=== PATIENT | male | born 1980 | race Two or more races ===

== ENCOUNTER 2018-07-04 22:10 | Emergency (ER) | payer SELFPAY ==
[2018-07-04 22:33] VITALS: BP 116/74
[2018-07-04 23:02] LABS: HEMATOCRIT 45.3 % (37.9-51.0); HEMOGLOBIN 15.8 g/dL (13.5-17.0); MEAN CORPUSCULAR HEMOGLOBIN 30.1 pg (27.0-33.4); MEAN CORPUSCULAR HGB CONC 34.9 g/dL (32.0-36.0); MEAN CORPUSCULAR VOLUME 87 fl (80-97); PLATELET COUNT 327 10^3/uL (150-450); RED BLOOD COUNT 5.24 10^6/uL (4.35-5.55); RED CELL DISTRIBUTION WIDTH 14.3 % (11.5-14.0); WHITE BLOOD COUNT 8.4 10^3/uL (4.0-10.5)
[2018-07-04 23:12] LABS: ANION GAP 12 (5-19); BLOOD UREA NITROGEN 26 mg/dL (7-20); CALCIUM 8.9 mg/dL (8.4-10.2); CARBON DIOXIDE 21 mmol/L (22-30); CHLORIDE 107 mmol/L (98-107); GLUCOSE 131 mg/dL (75-110); POTASSIUM 4.2 mmol/L (3.6-5.0); SODIUM 139.6 mmol/L (137-145)
--- NOTE | 2018-07-04 23:20 | RADIOLOGY REPORT (SQ) ---
Portable chest HISTORY: Chest pain. FINDINGS: Heart is mildly enlarged. No consolidation or pleural effusion. No pulmonary edema or pneumothorax. IMPRESSION: No acute disease.
[2018-07-04] MEDS ORDERED: LIDOCAINE 5% (700 MG) TRANSDERMAL ADH..PATCH TP ONE (23:59)
[2018-07-04] MEDS ORDERED: KETOROLAC TROMETHAMINE INJ/PF 30 MG/1 ML SDV IV ONE (23:59)
--- NOTE | 2018-07-05 00:02 | ER Document Report ---
ED General - General Chief Complaint: Chest Pain Stated Complaint: CHEST PAIN Time Seen by Provider: 07/04/18 22:44 Notes: Patient is a 37-year-old male without chronic medical problems who presents with 2 complaints. His first complaint is that he had chest discomfort earlier today, approximate 6 hours ago that was a stabbing, aching pain that he states rated up from his hip on the left side. States the back pain has long since resolved and he is no longer concerned regarding that pain. No history of similar in the past. Nothing improved or worsen the pain when present. Denies any cardiac history. The patient's main complaint is approximately 1 year of left hip pain that radiates down his leg. He describes this as a stabbing, shooting, severe pain. Nothing seems to trigger the pain other than raising the leg. He has not tried nothing for improvement. 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 Denies any bowel or bladder incontinence, fever, weight loss, IV drug use. He does not have a primary care physician. The history and physical exam was obtained by the provider using Swedish. A formal hospital equipment maintenance technician was offered to the patient and any family at the bedside at the beginning of the encounter and was declined. TRAVEL OUTSIDE OF THE [place] IN LAST 30 DAYS: No - Related Data Allergies/Adverse Reactions: No Known Allergies Allergy (Unverified 07/04/18 23:02) Past Medical History - General Information source: Patient - Social History Smoking Status: Former Smoker Frequency of alcohol use: None Drug Abuse: None Lives with: Family Family History: Reviewed & Not Pertinent Patient has suicidal ideation: No Patient has homicidal ideation: No Renal/ Medical History: Denies: Hx Peritoneal Dialysis Review of Systems - Review of Systems Notes: Constitutional: Negative for fever. HENT: Negative for sore throat. Eyes: Negative for visual changes. Cardiovascular: Positive for chest pain now resolved Respiratory: Negative for shortness of breath. Gastrointestinal: Negative for abdominal pain, vomiting or diarrhea. Genitourinary: Negative for dysuria. Musculoskeletal: Positive for left hip and left leg pain Skin: Negative for rash. Neurological: Negative for headaches, weakness or numbness. 10 point ROS negative except as marked above and in HPI. Physical Exam - Vital signs Vitals: Temp Pulse Resp BP Pulse Ox 97.9 F 50 L 22 H 116/74 96 07/04/18 22:11 07/04/18 22:11 07/04/18 22:11 07/04/18 22:11 07/04/18 22:11 Interpretation: Normal Notes: PHYSICAL EXAMINATION: GENERAL: Well-appearing, well-nourished and in no acute distress. HEAD: Atraumatic, normocephalic. EYES: Pupils equal round and reactive to light, extraocular movements intact, sclera anicteric, conjunctiva are normal. ENT: nares patent, oropharynx clear without exudates. Moist mucous membranes. NECK: Normal range of motion, supple without lymphadenopathy LUNGS: Breath sounds clear to auscultation bilaterally and equal. No wheezes rales or rhonchi. HEART: Regular rate and rhythm without murmurs ABDOMEN: Soft, nontender, normoactive bowel sounds. No guarding, no rebound. No masses appreciated. Back: No midline spinal tenderness, step-offs or deformities EXTREMITIES: Normal range of motion, no pitting or edema. No cyanosis. Positive straight leg test left leg NEUROLOGICAL: No focal neurological deficits. Moves all extremities spontaneously and on command. PSYCH: Normal mood, normal affect. SKIN: Warm, Dry, normal turgor, no rashes or lesions noted. Course - Re-evaluation Re-evalutation: 07/04/18 23:59 Presentation of chest pain in an otherwise well appearing patient. Low clinical suspicion for ACS given clinical history, exam, EKG without ST elevations or depressions, and negative initial troponin. HEART score less than or equal to 3. PE also seems unlikely given clinical history, absence of tachycardia or dyspnea. Patient is PERC criteria negative. CXR without evidence of pneumothorax or pneumonia. No widened mediastinum. Aortic dissection also seems unlikely given history, symmetric pulses, CXR, and vitals. Patient states that his chest pain was actually more of a sensation of the pain radiated from his left hip and back and I do not suspect a cardiac or life-threatening etiology. The patient's main complaint is actually regarding approximately 1 year of left hip and leg pain. No red flag symptoms for low back pain. No weight loss, bowel or bladder incontinence, urinary leg. He has a positive straight leg test on the left, states that the symptoms experienced during the leg test are identical to what he has been experiencing. Suspect a sciatic nerve irritation. I have instructed the patient began sciatic nerve stretches at home , I have begun him on naproxen. At this time will discharge with return precautions and follow-up recommendations. Verbal discharge instructions given a the bedside and opportunity for questions given. Medication warnings reviewed. Patient is in agreement with this plan and has verbalized understanding of return precautions and the need for primary care follow-up in the next 24-72 hours. - Vital Signs Vital signs: Temp Pulse Resp BP Pulse Ox 97.9 F 50 L 24 H 116/74 98 07/04/18 22:11 07/04/18 22:11 07/04/18 23:00 07/04/18 22:28 07/05/18 00:00 - Laboratory Result Diagrams: 07/04/18 22:36 07/04/18 22:36 Laboratory results interpreted by me: 07/04/18 07/04/18 22:36 22:36 RDW 14.3 H Carbon Dioxide 21 L BUN 26 H Glucose 131 H Discharge - Discharge Clinical Impression: Left sciatic nerve pain Chest pain Qualifiers: Chest pain type: unspecified Qualified Code(s): R07.9 - Chest pain, unspecified Condition: Good Disposition: HOME, SELF-CARE Additional Instructions: You have been seen in the Emergency Department (ED) today for sciatic nerve irritation. Your workup and exam have not shown any acute abnormalities and you are likely suffering from muscle strain or possible problems with your discs , but there is no treatment that will fix your symptoms at this time. Please take the naproxen that has been prescribed as directed. You should also purchase a local lidocaine cream such as "aspercreme with lidocaine" and use per bottle instructions to the affected area. Apply heat to the area as often as you are able. Continue to keep active and avoid prolonged periods of bed rest. Please follow up with your doctor as soon as possible regarding today's ED visit and your left hip and sciatic nerve pain. Return to the ED for worsening back pain, fever, weakness or numbness of either leg, or if you develop either ( 1) an inability to urinate or have bowel movements, or (2) loss of your ability to control your bathroom functions (if you start having "accidents"), or if you develop other new symptoms that concern you.concern you. You were seen today for chest pain. The exact cause of your pain is unclear. However, based on your cardiac enzyme testing, chest x-ray, and EKG it does not appear that it is from an immediately life-threatening cause at this time. Although your testing here is normal is critical that you follow-up with your primary care physician for continued evaluation of this chest pain and possible stress testing. I recommended you see your physician within the next 24-48 hours to be evaluated for consideration of a stress test. Please return to emergency department immediately if you have worsening of your chest pain, shortness of breath, vomiting, become unable to exert yourself due to pain or difficulty breathing, you pass out, or have any pain that radiates into your arms, jaw, or back. Please also return if you have any additional symptoms that are concerning to you. Prescriptions: Naproxen 500 mg PO BID PRN #60 tablet PRN Reason:
--- NOTE | 2018-07-05 16:24 | EKG REPORT ---
SEVERITY:- ABNORMAL ECG - SINUS RHYTHM PROBABLE LEFT ATRIAL ABNORMALITY CONSIDER POSTERIOR INFARCT : Confirmed by: Naman Nguyen MD 05-Jul-2018 16:23:49
== END 2018-07-05 00:26 | disposition home or self-care (01) ==
LOC: ER 22:10
DX: M54.32 Sciatica, left side (principal); R07.9 Chest pain, unspecified
CPT/HCPCS: 93005; 99285; 96374; 36415; 85027; 80048; 84484; 71045; 93010; J1885